=== PATIENT | female | born 1940 | race Caucasian/White ===

== ENCOUNTER 2023-11-07 09:02 | Day surgery (SDC) | payer MEDICARE, OTHER, SELFPAY ==
--- NOTE | 2023-11-07 | PATH_ITS ---
[facility] Accession Number: [id number] No. of containers..03 Tissue . 01 Material submitted: . PART A: colon - ASCENDING COLON POLYP PART B: colon - SIGMOID POLYP PART C: rectum - RECTAL POLYP . 01 Diagnosis: Part A: ASCENDING COLON POLYP: Tubular adenoma. . Part B: SIGMOID POLYP: Tubular adenoma. . Part C: RECTAL POLYP: Tubular adenoma. STO 11/14/2023 1513 Local . 01 Electronically signed: . Zeke Gayle MD, Pathologist NPI- [id number] . 01 Gross description: . Part A: ASCENDING COLON POLYP: Received in formalin are 4 fragment(s) of kaiser, soft tissue measuring 0.4 x 0.4 x 0.3 cm to 0.7 x 0.6 x 0.6 cm submitted entirely in 1 cassette(s) . Part B: SIGMOID POLYP: Received in formalin is 1 fragment(s) of kaiser, soft tissue measuring 0.6 x 0.5 x 0.4 cm submitted entirely in 1 cassette(s) . Part C: RECTAL POLYP: Received in formalin is 1 fragment(s) of kaiser, soft tissue measuring 0.4 x 0.3 x 0.3 cm submitted entirely in 1 cassette(s) /ERIN 11/14/2023 1513 Local . 01 Pathologist provided ICD-10: D12.2, D12.5, D12.8 . 01 CPT . 316551, 255343, 957118 Specimen Comment: A courtesy copy of this report has been sent to [phone] Performed at: 01 [facility] [address] [place] [address] [address], [place], [place] [id number] MD Zeke Gayle MD Phone: [phone]
[2023-11-07 09:42] VITALS: BP 142/69; PULSE 65; RESP 16; TEMP 36.4; O2SAT 98
[2023-11-07] MEDS: LACTATED RINGERS 1,000 ML 42 ML IV (09:58)
--- NOTE | 2023-11-07 10:23 | P.HP_ITS ---
History of Present Illness History of Present Illness Date Patient Seen: 11/07/23 Time Patient Seen: 10:23 Chief complaint: SDC Narrative: I reviewed the note by Dr. Schaffer from October 13. No significant changes. [facility] Social History Smoking Status: Never smoker Meds Home Medications and Allergies Allergies Allergy/AdvReac Type Severity Reaction Status Date / Time aspirin Allergy Verified 11/07/23 09:55 codeine Allergy Verified 11/07/23 09:56 iodine AdvReac Verified 11/07/23 09:57 Review of Systems Review of Systems ROS: Yes All systems reviewed with the patient and are negative except as otherwise documented Exam Vital Signs (past 8 hours): - 11/07/23 09:42 Temperature 97.6 F Pulse Rate 65 Respiratory Rate 16 Blood Pressure 142/69 H Pulse Oximetry 98 Oxygen Delivery Method Room Air Oxygen Delivery Method Room Air Const General: cooperative HENMT Head: normal to inspection Eyes General: appearance normal, both eyes and all related structures Neck Neck: normal visual inspection Chest Chest: normal inspection of the chest Resp Effort & Inspection: normal respiratory effort Cardio Rate: regular rate GI Inspection: normal to inspection Skin General: no rashes or lesions noted Neuro General: patient alert and patient awake Extrem General: normal to inspection and no pedal edema Psych Appearance: grossly normal Assessment & Plan Assessment & Plan narrative: This is an 83-year-old female with a spell of diverticulitis back in August. Follow-up colonoscopy has been requested to exclude neoplastic related etiology. Therefore colonoscopy is pursued today.
--- NOTE | 2023-11-07 10:24 | PM.PREOP ---
Pre-operative Note Interval Note History & Physical reviewed/Exam performed by Physician: Yes Changes to H&P: No ASA Class (for procedural sedation): II
--- NOTE | 2023-11-07 11:50 | P.OP.COLON_ITS ---
Operative Date/Time/Diagnoses Date of procedure: 11/07/23 Time of procedure: 11:50 Pre-op diagnosis: History of a recent episode of diverticulitis. Post-op diagnosis: same Procedure & Clinicians Study performed: Colonoscopy with hot snare polypectomy Same procedure as scheduled: Yes Indications: History of a recent spell of diverticulitis Surgeon: Abbe Jaimes Procedure Notes SCOAP/Timeout: Done Procedure in detail: After the risks and benefits were explained, written and verbal informed consent was obtained. The patient was brought into the procedure room and placed into the left lateral decubitus position. Please see anesthesia notes for sedation details. Digital rectal examination was accomplished. The scope was introduced into the patient and advanced under direct visualization to the cecum as identi fied by the appendiceal orifice and ileocecal valve. The scope was slowly withdrawn to carefully examine the mucosa for any defects or lesions. Comprehensive imaging was accomplished throughout the rectum including the dentate line. The colon was decompressed, the scope was then removed from the patient who tolerated the procedure well. Pediatric colonoscope Bowel prep adequate Scope withdrawal time: 14 minutes Sedation minutes: 30 Complications: none Impression: The patient had a fairly tortuous left colon. Navigation was somewhat challenging. There was extensive diverticulosis from the sigmoid through to about the hepatic flexure. No mass lesions no strictures. In the ascending colon there was an approximately 9 mm pedunculated polyp removed with hot snare. In the sigmoid colon there was a sessile 5-6 mm polyp removed with hot snare. In the rectum there was a 5 mm polyp removed with hot snare. No additional pathology was appreciated throughout. Endoscopic diagnosis 1. Diverticulosis 2. Multiple colon polyps Post-procedure Plan for aftercare: 1. Await histology. 2. Continue to follow along in primary care as before. Disposition: PACU
[2023-11-07 11:52] VITALS: BP 105/50; PULSE 69; RESP 17; TEMP 36.8; O2SAT 99
[2023-11-07 11:57] VITALS: BP 102/56; PULSE 70; RESP 14; O2SAT 97
[2023-11-07 12:02] VITALS: BP 108/65; PULSE 65; RESP 17; O2SAT 99
[2023-11-07 12:31] VITALS: BP 100/64; PULSE 64; RESP 20; O2SAT 98
== END 2023-11-07 12:32 | disposition home or self-care (01) ==
PROVIDERS: Referring Provider Internal Medicine Gastroenterology; Visit Provider Internal Medicine Gastroenterology
PROC: 0DJD8ZZ Inspection of Lower Intestinal Tract, Via Natural or Artificial Opening Endoscopic (ICD-10-PCS; CPT 45378; principal; 2023-11-07 10:00)
DX: Z87.19 Personal history of other diseases of the digestive system (principal); K57.30 Diverticulosis of large intestine without perforation or abscess without bleeding; D12.2 Benign neoplasm of ascending colon; D12.5 Benign neoplasm of sigmoid colon; D12.8 Benign neoplasm of rectum
CPT/HCPCS: 45385; J2704

== ENCOUNTER → 2024-02-22 10:01 | Outpatient (CLI) | payer MEDICARE, OTHER, SELFPAY ==
--- NOTE | 2024-02-22 10:07 | EKG_ITS ---
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
[2024-02-22 11:42] LABS: Add Manual Diff / Slide Review NO; Basophils Absolute Auto 0 /uL (0-100); Basophils Percent Auto 0.3 % (0-2); Eosinophils Absolute Auto 100 /uL (0-450); Eosinophils Percent Auto 1.3 % (2-4); Hemoglobin 12.4 g/dL (12.0-16.0); Lymphocytes Absolute Auto 6500 /uL (1100-4500); Lymphocytes Percent Auto 65.7 % (25-40); Mean Corpuscular HGB Conc 33.6 % (30-36); Mean Corpuscular Hemoglobin 30.6 PG (26-34); Monocytes Absolute Auto 900 /uL (0-900); Monocytes Percent Auto 9.4 % (3-14); Neutrophils Absolute Auto 2300 /uL (1500-7000); Neutrophils Percent Auto 23.3 % (50-75); Platelet Count 271 X10^3/uL (150-400); Red Blood Cell Count 4.06 X10^6/uL (4.0-5.2); Red Cell Distribution Width 13.6 % (11.6-14.8); White Blood Cell Count 9.9 X10^3/uL (4.5-11.0)
[2024-02-22 11:43] LABS: Hemoglobin A1C% w Est Avg Glu 8.3 % (4.0-6.0)
[2024-02-22 12:16] LABS: BUN Creatinine Ratio 26.8 (6-22); Blood Urea Nitrogen 15 mg/dL (7-17); Calcium 9.1 mg/dL (8.4-10.2); Carbon Dioxide 29 mmol/L (22-32); Chloride 104 mmol/L (98-107); Estimated Glomerular Filt Rate > 60 mL/min (>60); Glucose 142 mg/dL (80-110); HEMOLYSIS < 15 (0-50); Potassium 4.8 mmol/L (3.4-5.1); Sodium 135 mmol/L (137-145)
[2024-02-22 12:41] LABS: Appearance Urine UA CLEAR; Bilirubin Urine UA NEGATIVE (NEGATIVE); Color Urine UA YELLOW; Glucose Urine UA NEGATIVE (Negative); Ketones Urine UA NEGATIVE (NEGATIVE); Leukocyte Esterase Urine UA TRACE (NEGATIVE); Nitrite Urine UA NEGATIVE (Negative); Occult Blood Urine UA NEGATIVE (Negative); Protein Urine UA NEGATIVE (Negative); Urobilinogen Urine UA 0.2 E.U./dL (0.2)
[2024-02-22 12:53] LABS: Bacteria Urine Many (>30); Culture Indicated Urine Cult Not Indicated; RBC Urine 0-1/HPF (0-5/HPF); Squamous Epithelial Cell Urine 10-30 /HPF (0-5/HPF); Urine Volume 10mL (spun); WBC Urine 0-1/HPF (0-5/HPF)
== END ==
LOC: RESP 10:05
PROVIDERS: PCP Internal Medicine; Referring Provider Orthopaedic Surgery; Visit Provider Orthopaedic Surgery
DX: Z01.818 Encounter for other preprocedural examination (principal); R73.9 Hyperglycemia, unspecified; Z01.812 Encounter for preprocedural laboratory examination; N39.0 Urinary tract infection, site not specified
CPT/HCPCS: 36415; 80048; 81001; 83036; 85025; 93005

== ENCOUNTER → 2024-07-28 09:33 | Outpatient (CLI) | payer MEDICARE, OTHER, SELFPAY ==
--- NOTE | 2024-07-28 | DI.CT.S_ITS ---
PROCEDURE: CT UE RT WO CON INDICATIONS: dislocation of right ulnohumeral joint TECHNIQUE: Noncontrast 1-1.5 mm axial sections were acquired through the elbow joint, with coronal and sagittal reformats. COMPARISON: [facility], CR, XR ELBOW 1 OR 2 VIEWS RIGHT, 06/20/2024, 8:07. [facility], CR, XR ELBOW 1 OR 2 VIEWS RIGHT, 05/16/2024, 16:00. [facility], CR, XR ELBOW 1 OR 2 VIEWS RIGHT, 03/21/2024, 15:22. [facility], CR, XR ELBOW 1 OR 2 VIEWS RIGHT, 03/03/2024, 17:59. [facility], RF, RF UPPER EXTREMITY, 03/03/2024, 16:49. [facility], CR, XR ELBOW 1 OR 2 VIEWS RIGHT, 03/03/2024, 16:05. [facility], CT, CT ELBOW RIGHT WITHOUT CONTRAST, 03/03/2024, 13:34. [facility], CR, XR ELBOW 1 OR 2 VIEWS RIGHT, 03/03/2024, 12:13. FINDINGS: Image quality: Excellent. Bones: There are multiple, chronic, intra-articular fractures , including those of the radial head/neck (3/) base of the coronoid process of the ulna (318), central trochlea (3/), extensor tip of the olecranon (16-18) Joints: There is developing joint incongruity at the radiocapitellar and ulnar trochlear joints (4/31). There is a moderate elbow joint effusion (3/25). Calcified intra-articular debris is present at the posterior joint capsule (11/08-21). Muscles: Mild diffuse muscle atrophy is present. Tendons: Bridging heterotopic ossification is present along the expected common extensor tendon origin (4/24) as well as the annular ligament (4/) with a developing synostosis along the flexor compartment of the elbow. Vessels: No aneurysmal dilatation of the visualized vasculature. Lymph nodes: No epitrochlear lymphadenopathy. IMPRESSION: 1. No acute fracture or dislocation. 2. Sequelae of prior posterior elbow fracture-dislocation, with development of posttraumatic osteoarthritis and moderate joint effusion at the elbow. 3. 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 Dictated by: Rui Gilmore M.D. on 07/30/2024 at 9:48 Approved by: Rui Gilmore M.D. on 07/30/2024 at 11:30
== END ==
PROVIDERS: PCP Internal Medicine; Referring Provider Orthopaedic Surgery; Visit Provider Orthopaedic Surgery
DX: M19.121 Post-traumatic osteoarthritis, right elbow (principal); S53.104S Unspecified dislocation of right ulnohumeral joint, sequela; M25.421 Effusion, right elbow
CPT/HCPCS: 73200

== ENCOUNTER → 2024-09-10 12:52 | Outpatient (CLI) | payer MEDICARE, OTHER, SELFPAY ==
[2024-09-10 14:38] LABS: Appearance Urine UA CLEAR; Bilirubin Urine UA NEGATIVE (NEGATIVE); Color Urine UA YELLOW; Glucose Urine UA NEGATIVE (Negative); Ketones Urine UA NEGATIVE (NEGATIVE); Leukocyte Esterase Urine UA NEGATIVE (NEGATIVE); Nitrite Urine UA NEGATIVE (Negative); Occult Blood Urine UA NEGATIVE (Negative); Protein Urine UA NEGATIVE (Negative); Specific Gravity Urine UA <=1.005 (1.000-1.035); Urobilinogen Urine UA 0.2 E.U./dL (0.2)
--- NOTE | 2024-09-10 14:40 | EKG_ITS ---
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
[2024-09-10 14:42] LABS: pH Urine UA 5.5 (4.5-8.0)
[2024-09-10 14:57] LABS: Bacteria Urine Few (2-10); Culture Indicated Urine Cult Not Indicated; RBC Urine 0-1/HPF (0-5/HPF); Squamous Epithelial Cell Urine 0-1 /HPF (0-5/HPF); Urine Volume 10mL (spun); WBC Urine 0-1/HPF (0-5/HPF)
[2024-09-10 15:07] LABS: Add Manual Diff / Slide Review NO; Basophils Absolute Auto 0 /uL (0-100); Basophils Percent Auto 0.2 % (0-2); Eosinophils Absolute Auto 200 /uL (0-450); Eosinophils Percent Auto 1.3 % (2-4); Hematocrit 36.7 % (36-46); Hemoglobin 12.3 g/dL (12.0-16.0); Lymphocytes Absolute Auto 8100 /uL (1100-4500); Lymphocytes Percent Auto 61.3 % (25-40); Mean Corpuscular HGB Conc 33.5 % (30-36); Mean Corpuscular Hemoglobin 30.3 PG (26-34); Mean Corpuscular Volume 90.3 fL (80-100); Monocytes Absolute Auto 900 /uL (0-900); Monocytes Percent Auto 6.7 % (3-14); Neutrophils Absolute Auto 4000 /uL (1500-7000); Neutrophils Percent Auto 30.5 % (50-75); Platelet Count 309 X10^3/uL (150-400); Red Blood Cell Count 4.06 X10^6/uL (4.0-5.2); Red Cell Distribution Width 13.5 % (11.6-14.8); White Blood Cell Count 13.2 X10^3/uL (4.5-11.0)
[2024-09-10 15:15] LABS: Hemoglobin A1C% w Est Avg Glu 7.8 % (4.0-6.0)
[2024-09-10 15:27] LABS: BUN Creatinine Ratio 17.9 (6-22); Blood Urea Nitrogen 10 mg/dL (7-17); Calcium 9.3 mg/dL (8.4-10.2); Carbon Dioxide 26 mmol/L (22-32); Chloride 104 mmol/L (98-107); Estimated Glomerular Filt Rate > 60 mL/min (>60); Glucose 110 mg/dL (80-110); HEMOLYSIS < 15 (0-50); Potassium 4.2 mmol/L (3.4-5.1); Sodium 135 mmol/L (137-145)
== END ==
PROVIDERS: PCP Internal Medicine; Referring Provider Orthopaedic Surgery; Visit Provider Orthopaedic Surgery
DX: Z01.818 Encounter for other preprocedural examination (principal); Z01.812 Encounter for preprocedural laboratory examination; R73.9 Hyperglycemia, unspecified; N39.0 Urinary tract infection, site not specified
CPT/HCPCS: 36415; 80048; 81001; 83036; 85025; 93005; 93010

== ENCOUNTER 2025-05-08 15:01 | Emergency (ER) | payer MEDICARE, OTHER, SELFPAY ==
[2025-05-08] VITALS (19 sets, daily range): BP systolic 91–159; BP diastolic 59–85; PULSE 51–67; RESP 17–18; TEMP 36.4; O2SAT 92–98; BMI 28.1
--- NOTE | 2025-05-08 13:25 | EKG_ITS ---
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
--- NOTE | 2025-05-08 14:54 | DI.RAD.S_ITS ---
PROCEDURE: XR CHEST 1V INDICATIONS: Chest Pain TECHNIQUE: One view of the chest was acquired. COMPARISON: None. FINDINGS: Surgical changes and devices: None. Lungs and pleura: Lungs are clear. No pleural effusions or pneumothorax. Mediastinum: Tortuous thoracic aorta. Heart size is enlarged. Bones and chest wall: No suspicious bony lesions. Overlying soft tissues appear unremarkable. IMPRESSION: No acute cardiopulmonary pathology. Dictated by: Luis Villavicencio M.D. on 05/08/2025 at 15:38 Approved by: Luis Villavicencio M.D. on 05/08/2025 at 15:38
[2025-05-08 15:45] LABS: Hematocrit 36.0 % (36-46); Hemoglobin 12.1 g/dL (12.0-16.0); Mean Corpuscular HGB Conc 33.6 % (30-36); Mean Corpuscular Hemoglobin 30.6 PG (26-34); Mean Corpuscular Volume 91.3 fL (80-100); Platelet Count 276 X10^3/uL (150-400)
[2025-05-08 15:47] LABS: Add Manual Diff / Slide Review YES
[2025-05-08 15:52] LABS: INR 1.0 (0.9-1.3); Prothrombin Time 11.3 SECONDS (9.4-12.5)
[2025-05-08 15:55] LABS: PTT Partial Thromboplastin Tim 28 SECONDS (25.1-36.5)
[2025-05-08 15:57] LABS: Atypical Lymphocytes Percent 1.0 %; Lymphocytes Percent Manual 70.0 % (25-45); Monocytes Percent Manual 11.0 % (2-11); Neutrophils Absolute Manual 1926 /uL (3000-5900); Segmented Neutrophils Percent 18.0 % (38-70); Total Cells Counted 100
[2025-05-08 15:58] LABS: Alanine Aminotransferase 17 IU/L (<35); Albumin 3.9 g/dL (3.5-5.0); Albumin Globulin Ratio 1.1 (1.0-2.8); Alkaline Phosphatase 65 U/L (38-126); Blood Urea Nitrogen 19 mg/dL (7-17); Calcium 8.9 mg/dL (8.4-10.2); Carbon Dioxide 24 mmol/L (22-32); Chloride 102 mmol/L (98-107); Creatine Kinase 23 U/L (30-135); Estimated Glomerular Filt Rate > 60 mL/min (>60); Globulin 3.7 g/dL (1.7-4.1); Glucose 103 mg/dL (70-99); HEMOLYSIS < 15 (0-50); Lipase 40 U/L (23-300); Magnesium 2.1 mg/dL (1.6-2.3); Potassium 3.9 mmol/L (3.4-5.1); Sodium 134 mmol/L (137-145); Total Protein 7.6 g/dL (6.3-8.2)
[2025-05-08 15:59] LABS: RBC Morphology Normal Morphology; Smudge Cells 1+
[2025-05-08 16:09] LABS: NT-proBNP (BNP-Adult 18+) 581 pg/mL (<450); Troponin I < 0.012 ng/mL (0.01-0.034)
[2025-05-08] MEDS: SODIUM CHLORIDE 0.9% 500 ML 1000 ML IV (17:47)
--- NOTE | 2025-05-08 20:06 | DI.CT.S_ITS ---
PROCEDURE: CT HEAD/BRAIN WO CON INDICATIONS: syncope, headache TECHNIQUE: Noncontrast 4.5 mm thick angled axial sections acquired from the foramen magnum to the vertex, with coronal and sagittal reformats. For radiation dose reduction, the following was used: automated exposure control, adjustment of mA and/or kV according to patient size. COMPARISON: None. FINDINGS: Image quality: Diagnostic. CSF spaces: Basal cisterns are patent. No extra-axial fluid collections. The ventricles are symmetric in size and shape. Brain: 5 mm hyperdensity within the left cerebellum, Hounsfield units measure 62. No mass effect. There is cerebral volume loss, with resultant ventricular and sulcal prominence. There are periventricular and deep white matter chronic small vessel ischemic changes. There is intracranial internal carotid artery atherosclerosis. Skull and face: Calvarium and visualized facial bones appear intact, without suspicious lesions. Sinuses: Visualized sinuses and mastoids are clear. IMPRESSION: Hyperdensity within the left cerebellum highly suggestive of hemorrhage. No midline shift or mass effect. The above findings were discussed with Dr. Lopez Banda on 05/08/2025 at 9:23 p.m.. Dictated by: Daniela Schwartz M.D. on 05/08/2025 at 21:22 Approved by: Daniela Schwartz M.D. on 05/08/2025 at 21:26
--- NOTE | 2025-05-08 22:08 | ED_ITS ---
HPI - General Adult General Chief complaint: Weakness Stated complaint: Syncope/SOB Time Seen by Provider: 05/08/25 17:42 Source: patient and EMS Mode of arrival: EMS History of Present Illness HPI narrative: 85-year-old female with history of recurrent left-sided headaches, has had left- sided headache since Tuesday, with persisting and increasing nausea through the day today, some shortness of breath ongoing worse with lying down, no associated chest pain or palpitations. No fevers or chills. No focal weakness to face arm or leg. No focal numbness to face arm or leg. No incontinence symptoms to urine or stool. No abnormal gait. Some blurred vision with prior headaches but not particularly with this headache. Denies use of blood thinner medications. Patient had presented to [facility] walk-in clinic earlier today with complaint of weakness, nausea, dizziness, headache, recent cough, bigeminy apparently noted, referred for further evaluation to nearest ED likely [facility], however patient presented here. Related Data Allergies Allergy/AdvReac Type Severity Reaction Status Date / Time aspirin Allergy Verified 05/08/25 15:21 codeine Allergy Verified 05/08/25 15:21 iodine AdvReac Verified 05/08/25 15:21 Patient History alcohol intake frequency: a few times a month Exam Narrative Exam Narrative: GENERAL: Well-developed patient, in mild distress. HEAD: Atraumatic. Normocephalic. EYES: Pupils equal round and reactive. Extraocular motions intact. No scleral icterus. No injection or drainage. ENT: Nose without bleeding, purulent drainage. Throat without erythema, tonsillar hypertrophy or exudate. Airway patent. No tenderness left temporal artery area. NECK: Trachea midline. Non tender CARDIOVASCULAR: Regularly irregular rhythm, without obvious murmurs, gallops, or rubs. RESPIRATORY: Clear to auscultation. Breath sounds equal bilaterally. No wheezes, rales, or rhonchi. GASTROINTESTINAL: Abdomen soft, non-tender, nondistended. EXTREMITIES: No edema or joint tenderness. BACK: Nontender without deformity or crepitance. No flank tenderness. NEURO: AOx3. Cranial nerves intact. Motor functions 5/5 bilateral upper extremities and bilateral lower extremities. Ybsoxv-vl-qdco testing normal bilaterally. Light touch sensation intact to face arm or leg bilateral. SKIN: No rash or erythema of visible areas Initial Vital Signs Initial Vital Signs: Vital Signs Pulse Rate 62 09/10/25 15:14 Pulse Oximetry 98 05/08/25 15:14 Course Orders Ordered: Discontinued Medications Diphenhydramine HCl (Diphenhydramine 50 Mg/Ml Vial) 50 mg IV NOW ONE Stop: 05/08/25 23:20 Last Admin: 05/08/25 23:33 Dose: 50 mg Documented By: CHYNA Famotidine (Famotidine 20 Mg/2 Ml Vial) 20 mg IV NOW [facility] Last Admin: 05/08/25 23:33 Dose: 20 mg Documented By: CHYNA Sodium Chloride (Normal Saline 0.9%) 500 mls @ 1,000 mls/hr IV BOLUS ONE Stop: 05/08/25 18:11 Last Infusion: 05/08/25 18:23 Dose: Infused Documented By: Admin: 05/08/25 17:47 Dose: 1,000 mls/hr Documented By: GRAYSON Levetiracetam 1,000 mg/ Sodium (Chloride) 110 mls @ 440 mls/hr IV NOW ONE Stop: 05/08/25 22:34 Last Infusion: 05/09/25 00:34 Dose: Infused Documented By: Admin: 05/08/25 23:02 Dose: 440 mls/hr Documented By: GRAYSON Acetaminophen (Ofirmev) 1,000 mg in 100 mls @ 400 mls/hr IV NOW ONE Stop: 05/08/25 22:50 Last Infusion: 05/08/25 23:17 Dose: Infused Documented By: Admin: 05/08/25 23:00 Dose: 400 mls/hr Documented By: GRAYSON Sodium Chloride (Normal Saline 0.9%) 1,000 mls @ 500 mls/hr IV BOLUS ONE Stop: 05/09/25 01:02 Last Infusion: 05/09/25 04:26 Dose: Infused Documented By: Admin: 05/09/25 00:35 Dose: 500 mls/hr Documented By: GRAYSON Nicardipine HCl 25 mg/ Sodium (Chloride) 250 mls @ 50 mls/hr IV TITRATE [facility]; Protocol Last Admin: 05/09/25 04:26 Dose: 5 mg/hr, 50 mls/hr Documented By: Methylprednisolone (Methylprednisolone Succ 125 Mg/2 Ml Vial) 125 mg IV NOW ONE Stop: 05/08/25 23:20 Last Admin: 05/08/25 23:33 Dose: 125 mg Documented By: CHYNA Ondansetron HCl (Ondansetron 4 Mg/2 Ml Inj) 4 mg IV NOW ONE Stop: 05/08/25 22:34 Last Admin: 05/08/25 23:01 Dose: 4 mg Documented By: GRAYSON Vital Signs Vital signs: Vital Signs - 8 hr 05/08/25 21:30 05/08/25 22:00 05/08/25 22:31 Pulse Rate 62 59 L 62 Respiratory Rate 17 Blood Pressure Pulse Oximetry 97 96 98 Oxygen Delivery Method Room Air 05/08/25 22:35 05/08/25 22:35 05/08/25 23:00 Pulse Rate 56 L 51 L Respiratory Rate 17 Blood Pressure 148/85 H Pulse Oximetry 97 98 Oxygen Delivery Method Room Air 05/08/25 23:01 05/08/25 23:01 05/08/25 23:30 Pulse Rate 53 L 53 L Respiratory Rate 17 Blood Pressure 138/70 Pulse Oximetry 97 96 Oxygen Delivery Method 05/08/25 23:31 05/08/25 23:31 05/09/25 00:00 Pulse Rate 57 L 67 Respiratory Rate 17 Blood Pressure 122/65 Pulse Oximetry 96 97 Oxygen Delivery Method Room Air 05/09/25 00:30 05/09/25 00:30 05/09/25 01:00 Pulse Rate 65 80 Respiratory Rate 18 17 Blood Pressure 169/71 H Pulse Oximetry 95 93 Oxygen Delivery Method Room Air Room Air 05/09/25 01:13 05/09/25 01:13 05/09/25 01:30 Pulse Rate 66 57 L Respiratory Rate Blood Pressure 162/106 H Pulse Oximetry 95 94 Oxygen Delivery Method 05/09/25 01:31 05/09/25 01:31 05/09/25 02:00 Pulse Rate 58 L 56 L Respiratory Rate 16 Blood Pressure 153/67 H Pulse Oximetry 93 93 Oxygen Delivery Method 05/09/25 02:01 05/09/25 02:01 05/09/25 02:30 Pulse Rate 53 L 53 L Respiratory Rate 16 Blood Pressure 129/63 Pulse Oximetry 93 92 Oxygen Delivery Method 05/09/25 02:30 05/09/25 03:10 05/09/25 03:30 Pulse Rate 64 57 L Respiratory Rate Blood Pressure 123/56 L Pulse Oximetry 96 89 L Oxygen Delivery Method 05/09/25 04:00 05/09/25 04:00 Pulse Rate 38 L Respiratory Rate Blood Pressure 166/76 H Pulse Oximetry 97 Oxygen Delivery Method Medical Decision Making Lab Data Lab results reviewed: Yes I reviewed the patient's lab results. Lab results narrative: White blood cell count 06404, hemoglobin 12.1, platelets adequate. Glucose 103. BUN 19 with creatinine 0.66, serum CO2 24, sodium 134 slight low, potassium 3.9 normal. Liver functions normal. Lipase normal. Magnesium 2.1 normal. Troponin negative/unmeasurable. BNP 581 slight elevation only. 05/08/25 15:15 05/08/25 15:15 Labs: Lab Results 05/08/25 Range/Units 15:15 WBC 10.7 (4.5-11.0) X10^3/uL RBC 3.94 L (4.0-5.2) X10^6/uL Hgb 12.1 (12.0-16.0) g/dL Hct 36.0 (36-46) % MCV 91.3 (80-100) fL MCH 30.6 (26-34) PG MCHC 33.6 (30-36) % RDW 13.8 (11.6-14.8) % Plt Count 276 (150-400) X10^3/uL Neut % (Auto) Not Reportable Lymph % (Auto) Not Reportable Pierce % (Auto) Not Reportable Eos % (Auto) Not Reportable Baso % (Auto) Not Reportable Lymph # (Auto) Not Reportable Pierce # (Auto) Not Reportable Baso # (Auto) Not Reportable Total Counted 100 Seg Neutrophils % 18.0 L (38-70) % Lymphocytes % (Manual) 70.0 H (25-45) % Atypical Lymphs % 1.0 H ( - 0) % Monocytes % (Manual) 11.0 (2-11) % Neutrophils # (Manual) 1926 L (4721-3160) /uL Smudge Cells 1+ H RBC Morphology Normal morphology PT 11.3 (9.4-12.5) SECONDS INR 1.0 (0.9-1.3) APTT 28 (25.1-36.5) SECONDS Sodium 134 L (137-145) mmol/L Potassium 3.9 (3.4-5.1) mmol/L Chloride 102 (98-107) mmol/L Carbon Dioxide 24 (22-32) mmol/L BUN 19 H (7-17) mg/dL Creatinine 0.66 (0.52-1.04) mg/dL Estimated GFR > 60 (>60) mL/min BUN/Creatinine Ratio 28.8 H (6-22) Glucose 103 H (70-99) mg/dL Calcium 8.9 (8.4-10.2) mg/dL Magnesium 2.1 (1.6-2.3) mg/dL Total Bilirubin 0.4 (0.2-1.3) mg/dL AST 25 (14-36) IU/L ALT 17 (<35) IU/L Alkaline Phosphatase 65 (38-126) U/L Total Creatine Kinase 23 L (30-135) U/L Troponin I < 0.012 (0.01-0.034) ng/mL NT-Pro-B Natriuret Pep 581 H (<450) pg/mL Total Protein 7.6 (6.3-8.2) g/dL Albumin 3.9 (3.5-5.0) g/dL Globulin 3.7 (1.7-4.1) g/dL Albumin/Globulin Ratio 1.1 (1.0-2.8) Lipase 40 (23-300) U/L Imaging Data CT scan - head: Radiologist's Impression: [place] [address] CT Scan Report Signed Patient: Kev Morgan MR#: [id number] : 1940 Acct:[id number] Age/Sex: 85 / F Date of Service: 05/08/25 Loc: ED Accession Number: [id number] Procedure: CT head/brain wo con Ordering Provider: Lopez Banda MD PROCEDURE: CT HEAD/BRAIN WO CON INDICATIONS: syncope, headache TECHNIQUE: Noncontrast 4.5 mm thick angled axial sections acquired from the foramen magnum to the vertex, with coronal and sagittal reformats. For radiation dose reduction, the following was used: automated exposure control, adjustment of mA and/or kV according to patient size. COMPARISON: None. FINDINGS: Image quality: Diagnostic. CSF spaces: Basal cisterns are patent. No extra-axial fluid collections. The ventricles are symmetric in size and shape. Brain: 5 mm hyperdensity within the left cerebellum, Hounsfield units measure 62. No mass effect. There is cerebral volume loss, with resultant ventricular and sulcal prominence. There are periventricular and deep white matter chronic small vessel ischemic changes. There is intracranial internal carotid artery atherosclerosis. Skull and face: Calvarium and visualized facial bones appear intact, without suspicious lesions. Sinuses: Visualized sinuses and mastoids are clear. IMPRESSION: Hyperdensity within the left cerebellum highly suggestive of hemorrhage. No midline shift or mass effect. The above findings were discussed with Dr. Lopez Banda on 05/08/2025 at 9:23 p.m.. Dictated by: Daniela Schwartz M.D. on 05/08/2025 at 21:22 Approved by: Daniela Schwartz M.D. on 05/08/2025 at 21:26 CTA - brain/neck: Radiologist's Impression: [place] [address] CT Scan Report Signed Patient: Kev Morgan MR#: [id number] : 1940 Acct:[id number] Age/Sex: 85 / F Date of Service: 05/08/25 Loc: ED Accession Number: [id number] Procedure: CT angio head and neck Ordering Provider: Lopez Banda MD PROCEDURE: CT ANGIO HEAD AND NECK INDICATIONS: left sided headache TECHNIQUE: After the administration of intravenous contrast, 1 mm thick sections acquired from the aortic arch through the [place] of [place]. 3-dimensional kiufwsh-wzrshdkji-lowahyrudu (MIP) and/or volume rendering reformats were acquired of the central intracranial vasculature and neck separately. For radiation dose reduction, the following was used: automated exposure control, adjustment of mA and/or kV according to patient size. COMPARISON: [facility], CT, CT HEAD/BRAIN WO CON, 05/08/2025, 20:39. FINDINGS: Image quality: Diagnostic. Cerebral CT Angiogram: Internal carotid arteries: No acute findings. Intracranial ICA are patent with no significant stenosis. No occlusion. No aneurysm. Anterior cerebral arteries: Unremarkable. No significant stenosis. No occlusion. No aneurysm. Middle cerebral arteries: Unremarkable. No significant stenosis. No occlusion. No aneurysm. Posterior cerebral arteries: Unremarkable. No significant stenosis. No occlusion. No aneurysm. Basilar artery: Unremarkable. No significant stenosis. No occlusion. No aneurysm. Vertebral arteries: Vertebral arteries are codominant. Dural venous sinuses: Unremarkable given phase of enhancement. Other: Arterial phase appearance of the brain parenchyma is unremarkable. Neck CT Angiogram: Internal carotid arteries: Approximate 40-50% narrowing at the origin of the left internal carotid artery with calcification. Common carotid arteries: Unremarkable. No significant stenosis. No dissection or occlusion. External carotid arteries: Unremarkable. No occlusion. Vertebral arteries: Unremarkable. No significant stenosis. No dissection or occlusion. Aortic Arch and Mediastinum: Partially visualized aortic arch unremarkable without evidence of aneurysm. Origins of the great vessels unremarkable. 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 Other: Arterial phase soft tissues of the neck and chest are unremarkable. 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 Any quantitative measurements of stenosis were performed using NASCET criteria. Dictated by: Daniela Schwartz M.D. on 05/09/2025 at 0:36 Approved by: Daniela Schwartz M.D. on 05/09/2025 at 0:38 ECG Data Attestation: I personally reviewed and interpreted this ECG as follows: Interpretation: 1511, Sinus rhythm with frequent PVC pattern bigeminy, ventricular rate 65. Left ventricular hypertrophy changes. No obvious ST segment elevation or depression changes. WA 168, QRS 88, QTC 449. [facility] Narrative Medical decision making narrative: 85-year-old female with history of recurrent left-sided headache, persisting left-sided headache since Tuesday the last 3 days, no trauma known, no blood thinner medications, persisting and then increasing nausea, some shortness of breath without chest discomfort. Afebrile, sirs screen negative. Nonfocal neuro exam. CT head request. EKG and labs pending. Release of records [facility] walk-in clinic, if available at this hour. EKG shows bigeminy pattern, heart rate 65. Lab data: White blood cell count 13295, hemoglobin 12.1, platelets adequate. Glucose 103. BUN 19 with creatinine 0.66, serum CO2 24, sodium 134 slight low, potassium 3.9 normal. Liver functions normal. Lipase normal. Magnesium 2.1 normal. Troponin negative/unmeasurable. BNP [address] head noncontrast. Impressions: ?Hyperdensity within the left cerebellum highly suggestive of hemorrhage. No midline shift or mass effect. See radiology report. Nonfocal neuro, persisting headache left-sided, increasing nausea. Acute hemorrhagic change left cerebellum on CT imaging. No Neurosurgery or Neurology available here. Consider transfer. We will consult starting with Neurology. IV Keppra load to help prevent seizure. 2299, case discussed with [facility] neurology Dr Lugo, would suggest CTA imaging, likely transfer. She will consult with her attending and call back. Patient has history of iodine allergy, we will premedicate with IV steroid and antihistamines, CTA head and neck vessels ordered. Call back from [facility] Neurology Dr. Lugo, who feels there maybe a thrombosed aneurysm, distinct from an old appearing left cerebellar calcified lesion, possible sentinel bleed, would hold off on CTA head and neck vessels study for now. Consult Neurosurgery, they have been paged. Discussed with Neurosurgery Dr Welch, would like CTA studies, proceed with prior order. We will reconsult once CTA studies and interval repeat [address] head studies sent. 229, 1st CT head was done about 8:00 p.m., we will obtain interval repeat CT noncontrast study head now. Reconsult Neurosurgery for recommendations once above studies transmitted. Repeat CT scan was transmitted. Call back from [facility] transfer service, Dr. Alvares Neurosurgery accepts patient for transfer, suspected intracranial hemorrhage. Requests nicardipine for blood pressure control systolic less than 140 goal if needed. Last blood pressure systolic 123 noted. Transfer ED to ED [facility]. CT head without contrast repeat study. Impression: ?rounded area of hyperdensity within the anterior aspect of the right middle cranial fossa indicative of right MCA aneurysms as seen on the patient's earlier CT angiogram of the head. There is greater hyperdensity then on the patient's earlier study which may be related to contrast filling of the aneurysm or component of blood products. There is surrounding areas of vasogenic edema or ischemia. MRI of the brain without and with contrast could further evaluate. Hyperdensity along the left cerebellum near the left cerebellar peduncle as seen in the patient's seen earlier CT angiogram. Again, this may be related to a small focus of hemorrhage or contrast blush given in the recent contrast administration. ? See tele radiology report. Critical Care Time Critical Care Time Critical Care Time: Yes Total Critical Care Time: 35 Attestation: The high probability of a clinically significant, sudden or life threatening deterioration of the [central nervous system, brain, cardiopulmonary] system(s) required my full and direct attention, intervention and personal management. The aggregate critical care time was [35] minutes. This time is in addition to time spent performing reported procedures but includes the following: [x] Data Review and interpretation [x] Patient assessment and monitoring of vital signs [x] Documentation [x] Medication orders and management Discharge Plan Departure Patient Disposition: [facility] Clinical Impression: Nausea, Intracranial hemorrhage Referrals: Sebastián Paulino MD [Primary Care Provider, Internal Medicine]
--- NOTE | 2025-05-08 22:37 | PC.NURSE ---
Pt complaining of 7/[address] Banda aware, verbal order placed see OCT.
[2025-05-08] MEDS: ACETAMINOPHEN IV 1,000 MG/100 ML VIAL 400 MG IV (23:00)
[2025-05-08] MEDS: ONDANSETRON 4 MG/2 ML INJ IV (23:01)
--- NOTE | 2025-05-08 23:02 | DI.CT.S_ITS ---
PROCEDURE: CT ANGIO HEAD AND NECK INDICATIONS: left sided headache TECHNIQUE: After the administration of intravenous contrast, 1 mm thick sections acquired from the aortic arch through the [place] of [place]. 3-dimensional bzykrsq-unrixwpel-pockgbdxvn (MIP) and/or volume rendering reformats were acquired of the central intracranial vasculature and neck separately. For radiation dose reduction, the following was used: automated exposure control, adjustment of mA and/or kV according to patient size. COMPARISON: [facility], CT, CT HEAD/BRAIN WO CON, 05/08/2025, 20:39. FINDINGS: Image quality: Diagnostic. Cerebral CT Angiogram: Internal carotid arteries: No acute findings. Intracranial ICA are patent with no significant stenosis. No occlusion. No aneurysm. Anterior cerebral arteries: Unremarkable. No significant stenosis. No occlusion. No aneurysm. Middle cerebral arteries: Unremarkable. No significant stenosis. No occlusion. No aneurysm. Posterior cerebral arteries: Unremarkable. No significant stenosis. No occlusion. No aneurysm. Basilar artery: Unremarkable. No significant stenosis. No occlusion. No aneurysm. Vertebral arteries: Vertebral arteries are codominant. Dural venous sinuses: Unremarkable given phase of enhancement. Other: Arterial phase appearance of the brain parenchyma is unremarkable. Neck CT Angiogram: Internal carotid arteries: Approximate 40-50% narrowing at the origin of the left internal carotid artery with calcification. Common carotid arteries: Unremarkable. No significant stenosis. No dissection or occlusion. External carotid arteries: Unremarkable. No occlusion. Vertebral arteries: Unremarkable. No significant stenosis. No dissection or occlusion. Aortic Arch and Mediastinum: Partially visualized aortic arch unremarkable without evidence of aneurysm. Origins of the great vessels unremarkable. 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 Other: Arterial phase soft tissues of the neck and chest are unremarkable. 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 Any quantitative measurements of stenosis were performed using NASCET criteria. Dictated by: Daniela Schwartz M.D. on 05/09/2025 at 0:36 Approved by: Daniela Schwartz M.D. on 05/09/2025 at 0:38
[2025-05-08] MEDS: methylPREDNISolone succ 125 MG/2 ML VIAL IV (23:33)
[2025-05-08] MEDS: FAMOTIDINE 20 MG/2 ML VIAL IV (23:33)
[2025-05-08] MEDS: diphenhydrAMINE 50 MG/ML VIAL IV (23:33)
[2025-05-09] VITALS (12 sets, daily range): BP systolic 123–169; BP diastolic 56–106; PULSE 38–80; RESP 16–18; O2SAT 89–97
[2025-05-09] MEDS: SODIUM CHLORIDE 0.9% 1,000 ML 500 ML IV (00:35)
--- NOTE | 2025-05-09 02:26 | DI.CT.S_ITS ---
PROCEDURE: CT HEAD/BRAIN WO CON INDICATIONS: Interval repeat [address] scan TECHNIQUE: Noncontrast 4.5 mm thick angled axial sections acquired from the foramen magnum to the vertex, with coronal and sagittal reformats. For radiation dose reduction, the following was used: automated exposure control, adjustment of mA and/or kV according to patient size. COMPARISON: [facility], CT, CT HEAD/BRAIN WO CON, 05/08/2025, 20:39. FINDINGS: Image quality: Diagnostic CSF spaces: Basal cisterns are patent. Lateral ventricles are symmetric. Volume: Vascular calcifications. Periventricular white matter disease is commonly seen with chronic microangiopathy. Volume loss is present. These findings are [id number] Brain: Right MCA aneurysm with hyperdensity. There is surrounding edema of the right temporal lobe. Hyperdensities also again seen in the left cerebellum. No new hemorrhage. Craniofacial structures: No significant paranasal sinus opacity. 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 Acute blood products possible, though there is no significant surrounding parenchymal edema. Brain MRI recommended with and without contrast. No significant discrepancy from the preliminary report. Discussed with Dr. Brink Dictated by: Gabino Bravo M.D. on 05/09/2025 at 7:17 Approved by: Gabino Bravo M.D. on 05/09/2025 at 7:24
== END 2025-05-09 04:42 | disposition short-term general hospital (02) ==
PROVIDERS: Emergency Medicine; Emergency Provider Emergency Medicine; PCP Internal Medicine
DX: I62.9 Nontraumatic intracranial hemorrhage, unspecified (principal); R11.0 Nausea; R06.02 Shortness of breath
CPT/HCPCS: 70450; 70496; 70498; 71045; 80053; 82550; 83690; 83735; 83880; 84484; 85007; 85025; 85610; 85730; 93005; 96361; 96365; 96366; 96368; 96375; 99284; 99291; J0131; J1200; J1953; J2405; J2919; Q9967